=== PATIENT | female | born 1950 ===

== ENCOUNTER → 2018-04-21 16:26 | Outpatient (CLI) | payer OTHER ==
[~2018-04-21 16:26] MED LIST: DICLOFENAC POTA50 MG PO; GABAPENTIN400 MG PO; HYDROCHLOROTH12.5 M1 PO; LEVOCETIRIZINE D5 MG PO; LIPITOR40 MG PO; METOPROLOL SUCC25 MG PO; PERCOCET 5-3251 EACH PO; SINGULAIR 10MG10 MG PO; ULTRACET PO; XALATAN OP; [UNRECOGNIZED DRUG - OTHER] PO
== END | disposition home or self-care (01) ==
LOC: LAB 16:26
DX: D68.8 Other specified coagulation defects (principal); D64.89 Other specified anemias